=== PATIENT | female | born 1985 | race Caucasian/White ===

== ENCOUNTER 2019-05-03 09:50 | Outpatient (CLI) | payer BC ==
--- NOTE | 2019-05-03 10:26 | ULT ---
US Thyroid STANDARD History: Palpable abnormality Comparison: None. Findings: Real-time grayscale and color evaluation of the thyroid was performed. At the area of palpable abnormality superficial to the isthmus is a well-defined hypoechoic cyst trice uring 1.4 x 1.6 x 0.6 cm. Spongiform nodule inferior left lobe of thyroid does not need follow-up or aspiration. Isthmus measures 2 mm in AP dimension. Right lobe measures 4.3 x 1.9 x 1.3 cm and the left lobe measu res 4.4 x 1.8 x 1 cm. 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
== END 2019-05-03 09:51 | disposition home or self-care (01) ==
LOC: SCSULT 09:50
PROVIDERS: ATTEND Family Medicine
DX: R22.1 Localized swelling, mass and lump, neck (principal)
CPT/HCPCS: 76536

== ENCOUNTER 2019-05-18 07:44 | Day surgery (SDC) | payer BC ==
[2019-05-17 09:02] VITALS: BMI 23.8
[2019-05-18 09:34] LABS: BHCG - Serum Negative (NEGATIVE); Pregs Control Background? CLEAR/WHITE (CLR/WHITE); Pregs Control Bar Appear? YES (CONTROL BAR)
[2019-05-18] MEDS ORDERED: Lidocaine 1% w/Epinephrine 1:100K 20 ML VIAL ONE (09:43)
[2019-05-18] MEDS ORDERED: Midazolam HCl 2 mg/2 ml Vial ONE (09:54)
[2019-05-18] MEDS ORDERED: Fentanyl 250 MCG/5 ML VIAL ONE (09:54)
[2019-05-18] MEDS ORDERED: Lidocaine 1% PF 5 ML VIAL ONE (10:24)
[2019-05-18] MEDS ORDERED: Ketorolac Tromethamine 30 MG/ML VIAL ONE (10:24)
[2019-05-18] MEDS ORDERED: Dexamethasone 20 MG/5 ML VIAL ONE (10:24)
[2019-05-18] MEDS ORDERED: PROPOFOL 200 MG/20 ML VIAL ONE (10:24)
[2019-05-18] MEDS ORDERED: Rocuronium Bromide 10 MG/ML (10ML VIAL) ONE (10:24)
[2019-05-18] MEDS ORDERED: ePHEDrine 50 MG/ML VIAL ONE (10:24)
[2019-05-18] MEDS ORDERED: Ondansetron PF 4 MG/2 ML Vial ONE (10:24)
[2019-05-18] MEDS ORDERED: Fentanyl 100 MCG/2 ML VIAL ONE ×3 (12:01→12:32)
[2019-05-18] MEDS ORDERED: Hydrocodone-Acetamin 15 ML UDCUP ONE (13:27)
--- NOTE | 2019-05-19 14:18 | OP ---
DATE OF PROCEDURE: 05/18/2019 PREOPERATIVE DIAGNOSIS: Anterior neck mass. POSTOPERATIVE DIAGNOSIS: Anterior neck mass. PROCEDURE PERFORMED: Excision of thyroglossal duct cyst and direct laryngoscopy. PROCEDURE: After consent was obtained, the patient was identified and brought to the OR, placed on table in supine position. General endotracheal anesthesia was obtained. The patient was positioned for surgery. The patient underwent systematic laryngeal evaluation and no abnormalities were identified in the tongue base region or lateral pharynx. We then proceeded with prepping and draping the patient and prepared them for surgery. The area of intended incision in the upper neck and the natural skin crease below the hyoid bone was infiltrated with 1% lidocaine with 1:100,000 epinephrine. We made an incision, carried down through the skin into the subcutaneous tissues and encountered a cyst-like structure with markedly inflamed fibrous tissue. We did an en bloc resection where we removed the tissue along that whole section and dissected superiorly to the hyoid bone. The midportion of the hyoid bone was removed as well and the track was followed down to the base of the tongue. Everything was then suture ligated and sent for histologic evaluation. Strap muscles reapproximated in the midline after hemostasis was obtained. The wound was closed in layers with 5-0 prolene for the deep tissues and 6-0 Prolene for the skin. Sterile dressing was applied. The patient was awakened, extubated, and taken to the recovery room in stable condition prior to discharge home. Job ID: [id number]
== END 2019-05-18 14:00 | disposition home or self-care (01) ==
LOC: SDC 07:44
PROVIDERS: ATTEND Specialist
PROC: 0WB60ZZ Excision of Neck, Open Approach (ICD-10-PCS; principal; 2019-05-18)
DX: Q89.2 Congenital malformations of other endocrine glands (principal); J39.2 Other diseases of pharynx; Z91.018 Allergy to other foods
CPT/HCPCS: 36415; 84703; 85014; 88305; J0131; J1100; J1885; J2001; J2250; J2405; J2704; J3010; J3490